=== PATIENT | female | born 1980 ===

== ENCOUNTER 2018-03-19 12:34 | Emergency (ER) | payer OTHER ==
[~2018-03-19] VITALS: Ht 165.1 cm; Wt 80.3 kg
[2018-03-19] MEDS ORDERED: OMEPRAZOLE (12:55)
[2018-03-19 13:07] LABS: BILIRUBIN,URINE NEGATIVE (NEGATIVE); CLARITY,URINE CLEAR; COLOR,URINE YELLOW; GLUCOSE, URINE (UA) NEGATIVE (NEGATIVE); KETONES,URINE NEGATIVE (NEGATIVE); LEUKOCYTE ESTERASE ,URINE NEGATIVE (NEGATIVE); NITRITE,URINE NEGATIVE (NEGATIVE); PH,URINE 5 (5-9); PROTEIN,URINE NEGATIVE (NEGATIVE); UROBILINOGEN,URINE NORMAL (NORMAL)
[2018-03-19 13:27] LABS: RBC,URINE 0-2 /HPF; SQUAMOUS EPITHELIAL CELL,UR 0-2 /HPF; WBC,URINE RARE /HPF
[2018-03-19 14:13] LABS: BASOPHILS # (AUTO) 0.1 10^3/uL (0.0-0.1); BASOPHILS % (AUTO) 1 % (0-10); EOSINOPHILS # (AUTO) 0.3 10^3/uL (0.0-0.3); EOSINOPHILS % (AUTO) 4 % (0-10); HEMATOCRIT 37 % (35-52); HEMOGLOBIN 13.1 G/DL (11.5-16.0); LYMPHOCYTES # (AUTO) 2.7 X 10^3 (1.0-4.0); LYMPHOCYTES % (AUTO) 32 % (12-44); MEAN CORPUSCULAR HEMOGLOBIN 31 PG (25-34); MEAN CORPUSCULAR HGB CONC 35 G/DL (32-36); MEAN CORPUSCULAR VOLUME 86 FL (80-99); MEAN PLATELET VOLUME 9.5 FL (7.4-10.4); MONOCYTES # (AUTO) 0.7 X 10^3 (0.0-1.0); MONOCYTES % (AUTO) 9 % (0-12); NEUTROPHILS # (AUTO) 4.6 X 10^3 (1.8-7.8); NEUTROPHILS % (AUTO) 55 % (42-75); PLATELET COUNT 364 10^3/uL (130-400); RED BLOOD COUNT 4.28 10^6/uL (4.35-5.85); RED CELL DISTRIBUTION WIDTH 12.5 % (10.0-14.5); WHITE BLOOD COUNT 8.5 10^3/uL (4.3-11.0)
[2018-03-19 14:32] LABS: ALANINE AMINOTRANSFERASE 25 U/L (0-55); ALBUMIN 4.6 GM/DL (3.2-4.5); ALKALINE PHOSPHATASE 64 U/L (40-136); BILIRUBIN,TOTAL 0.6 MG/DL (0.1-1.0); BUN/CREATININE RATIO 13; CALCIUM 9.7 MG/DL (8.5-10.1); CARBON DIOXIDE 25 MMOL/L (21-32); CHLORIDE 105 MMOL/L (98-107); CREATININE SERUM 0.67 MG/DL (0.60-1.30); GFR ESTIMATED > 60; GLUCOSE 93 MG/DL (70-105); LIPASE 38 U/L (8-78); MAGNESIUM 2.3 MG/DL (1.8-2.4); POTASSIUM 3.7 MMOL/L (3.6-5.0); SODIUM 142 MMOL/L (135-145); TOTAL PROTEIN 8.4 GM/DL (6.4-8.2)
[2018-03-19] MEDS ORDERED: HYOSCYAMINE 0.125 MG (LEVSIN) TAB SL ONE (14:45)
--- NOTE | 2018-03-19 14:47 | ED Abdominal Pain ---
General Chief Complaint: Abdominal/GI Problems Stated Complaint: ABD PAIN Nursing Triage Note: TO ROOM WITH C/O L UPUPER ABD PAIN FOR 1 MONTH WAS SEEN AT [facility] 2 WEEKS AGO AND STARTED ON OMEPRAZOLE . WAS TOLD TO FOLLOW UP IF NOT ANY BETTER REPORTS NOT ANY BETTER. Sepsis Screen: No Definite Risk Source of Information: Patient Exam Limitations: Language Barrier History of Present Illness Date Seen by Provider: Mar 19, 2018 Time Seen by Provider: 12:40 Initial Comments This 37-year-old woman presents to the emergency room with complaints of intermittent abdominal pain that first started on the left and has now migrated to the right. Pain has been intermittent for about one month and is sharp in nature. She does have some diarrhea. Pain and diarrhea seem to occur shortly after eating. She also reports some burning with urination. She reports her last menstrual period was 3 months ago and her cycles are normally irregular. She is not sexually active. She was recently started on a PPI which has helped a little. She is afebrile. Pain seems to be crampy or colicky in nature. Language line was used for the interview. Allergies and Home Medications Allergies Coded Allergies: No Known Drug Allergies (Unverified , 03/19/18) Home Medications Hyoscyamine Sulfate 0.125 Mg Tab.subl, 1-2 TAB SL Q4H PRN for CRAMPS Prescribed by: CASEY BAIRD on 03/19/18 [id number] Patient Home Medication List Home Medication List Reviewed: Yes Review of Systems Review of Systems Constitutional: no symptoms reported EENTM: No Symptoms Reported Respiratory: No Symptoms Reported Cardiovascular: No Symptoms Reported Gastrointestinal: See HPI Genitourinary: No Symptoms Reported Musculoskeletal: no symptoms reported Skin: no symptoms reported Psychiatric/Neurological: No Symptoms Reported Endocrine: No Symptoms Reported Hematologic/Lymphatic: No Symptoms Reported Past Ptpjwww-Esbzap-Abenbm Hx Patient Social History Alcohol Use: Denies Use Recreational Drug Use: No Smoking Status: Never a Smoker Recent Foreign Travel: No Contact w/Someone Who Travel: No Recent Infectious Disease Expo: No Past Medical History Surgeries: Yes Gallbladder Respiratory: No Cardiac: No Neurological: No : No Reproductive Disorders: Yes (irregular cycles) Female Reproductive Disorders: Menstrual Problems Genitourinary: No Gastrointestinal: No Musculoskeletal: No Endocrine: No HEENT: No Cancer: No Did You Recieve Any Treatments: No Psychosocial: No Integumentary: No Physical Exam Vital Signs Vital Signs - First Documented 03/19/18 12:42 Temp 99.0 Pulse 80 Resp 18 B/P (MAP) 120/82 (95) Pulse Ox 98 O2 Delivery Room Air Capillary Refill : Less Than 3 Seconds Height/Weight/BMI Height: 5'5.00" Weight: 177lbs. oz. 80.160956dj; BMI Method:Stated General Appearance: WD/WN, no apparent distress HEENT: PERRL/EOMI, normal ENT inspection, pharynx normal Neck: normal inspection Respiratory: lungs clear, normal breath sounds, no respiratory distress, no accessory muscle use Cardiovascular: regular rate, rhythm, no edema, no murmur Gastrointestinal: normal bowel sounds, soft, tenderness (diffuse, mild, no focal areas of tenderness) Extremities: normal inspection, no pedal edema Neurologic/Psychiatric: wood heel attacher II-XII nml as tested, no motor/sensory deficits, alert, normal mood/affect, oriented x 3 Skin: normal color, warm/dry Progress/Results/Core Measures Results/Orders Lab Results Laboratory Tests Test 03/19/18 12:43 03/19/18 12:53 Range/Units White Blood Count 8.5 4.3-11.0 10^3/uL Red Blood Count 4.28 L 4.35-5.85 10^6/uL Hemoglobin 13.1 11.5-16.0 G/DL Hematocrit 37 35-52 % Mean Corpuscular Volume 86 80-99 FL Mean Corpuscular Hemoglobin 31 25-34 PG Mean Corpuscular Hemoglobin Concent 35 32-36 G/DL Red Cell Distribution Width 12.5 10.0-14.5 % Platelet Count 364 130-400 10^3/uL Mean Platelet Volume 9.5 7.4-10.4 FL Neutrophils (%) (Auto) 55 42-75 % Lymphocytes (%) (Auto) 32 12-44 % Monocytes (%) (Auto) 9 0-12 % Eosinophils (%) (Auto) 4 0-10 % Basophils (%) (Auto) 1 0-10 % Neutrophils # (Auto) 4.6 1.8-7.8 X 10^3 Lymphocytes # (Auto) 2.7 1.0-4.0 X 10^3 Monocytes # (Auto) 0.7 0.0-1.0 X 10^3 Eosinophils # (Auto) 0.3 0.0-0.3 10^3/uL Basophils # (Auto) 0.1 0.0-0.1 10^3/uL Sodium Level 142 135-145 MMOL/L Potassium Level 3.7 3.6-5.0 MMOL/L Chloride Level 105 98-107 MMOL/L Carbon Dioxide Level 25 21-32 MMOL/L Anion Gap 12 5-14 MMOL/L Blood Urea Nitrogen 9 7-18 MG/DL Creatinine 0.67 0.60-1.30 MG/DL Estimat Glomerular Filtration Rate > 60 BUN/Creatinine Ratio 13 Glucose Level 93 70-105 MG/DL Calcium Level 9.7 8.5-10.1 MG/DL Corrected Calcium 8.5-10.1 MG/DL Magnesium Level 2.3 1.8-2.4 MG/DL Total Bilirubin 0.6 0.1-1.0 MG/DL Aspartate Amino Transf (AST/SGOT) 18 5-34 U/L Alanine Aminotransferase (ALT/SGPT) 25 0-55 U/L Alkaline Phosphatase 64 40-136 U/L C-Reactive Protein High Sensitivity 0.50 0.00-0.50 MG/DL Total Protein 8.4 H 6.4-8.2 GM/DL Albumin 4.6 H 3.2-4.5 GM/DL Lipase 38 8-78 U/L Serum Test, Qualitative NEGATIVE NEGATIVE Urine Color YELLOW Urine Clarity CLEAR Urine pH 5 5-9 Urine Specific Jamieson 1.020 1.016-1.022 Urine Protein NEGATIVE NEGATIVE Urine Glucose (UA) NEGATIVE NEGATIVE Urine Ketones NEGATIVE NEGATIVE Urine Nitrite NEGATIVE NEGATIVE Urine Bilirubin NEGATIVE NEGATIVE Urine Urobilinogen NORMAL NORMAL MG/DL Urine Leukocyte Esterase NEGATIVE NEGATIVE Urine RBC (Auto) 1+ H NEGATIVE Urine RBC 0-2 /HPF Urine WBC RARE /HPF Urine Squamous Epithelial Cells 0-2 /HPF Urine Crystals NONE /LPF Urine Bacteria NONE /HPF Urine Casts NONE /LPF Urine Mucus NEGATIVE /LPF Urine Culture Indicated NO My Orders Orders - CASEY ZARCO MD Ua Culture If Indicated (03/19/18 12:40) Cbc With Automated Diff (03/19/18 13:43) Comprehensive Metabolic Panel (03/19/18 13:43) Hs C Reactive Protein (03/19/18 13:43) Hcg,Qualitative Serum (03/19/18 13:43) Lipase (03/19/18 13:43) Magnesium (03/19/18 13:43) Saline Lock/Iv-Start (03/19/18 13:45) Abdomen, Flat & Upright/Decub (03/19/18 14:36) Hyoscyamine Sl Tablet (Levsin Sl Tablet) (03/19/18 14:45) Medications Given in ED Current Medications Medications Dose Ordered Sig/Nallely Route Start Time Stop Time Status Last Admin Dose Admin Hyoscyamine Sulfate 0.25 mg ONCE ONCE SL 03/19/18 14:45 03/19/18 14:46 DC 03/19/18 14:42 0.25 MG Vital Signs/I&O 03/19/18 03/19/18 12:42 16:07 Temp 99.0 Pulse 80 79 Resp 18 18 B/P (MAP) 120/82 (95) 109/67 (81) Pulse Ox 98 96 O2 Delivery Room Air Room Air Blood Pressure Mean: 95 Progress Progress Note #1: Time: 14:47 Progress Note Labs were unremarkable. We will obtain some x-rays and try Levsin. Progress Note #2: Progress Note Labs and x-ray were unremarkable. Pain improved with Levsin. Since diarrhea was ongoing for a month patient was given an order for stool studies. A prescription for Levsin was provided. Discharge instructions were reviewed with the language line environmental test technician and all questions were answered. Departure Impression Primary Impression: Colicky abdominal pain Additional Impression: Acute diarrhea Disposition: 01 HOME, SELF-CARE Condition: Improved Departure-Patient Inst. Decision time for Depature: 15:45 Referrals: [facility] (PCP/Family) Primary Care Physician Patient Instructions: Acute Abdomen (Belly Pain), Adult (DC), Diarrhea in Adolescents and Adults Add. Discharge Instructions: Collect a stool specimen and bring it back to the hospital with the order. Avoid foods that may irritate your bowels including fatty or greasy foods or milk products. You may use the Levsin (hyoscyamine) as prescribed for all cramping. Follow-up with your primary care provider several days after returning the stool specimen to review results. All discharge instructions reviewed with patient and/or family. Voiced understanding. Scripts Hyoscyamine Sulfate (Levsin-Sl) 0.125 Mg Tab.subl 1-2 TAB SL Q4H PRN for CRAMPS, #20 TAB Prov: CASEY ZARCO MD 03/19/18 Copy Copies To 1: KINA TOTH JOSHUA T MD Mar 19, 2018 14:47
--- NOTE | 2018-03-19 15:29 | Diagnostic Imaging Report ---
INDICATION: Abdominal pain and cramping. COMPARISON: None. EXAMINATION: KUB and upright views of the abdomen were obtained. FINDINGS: Nondistended bowel gas pattern. No significant constipation is seen. There is no free air. Osseous structures are normal. Cholecystectomy clips are present. IMPRESSION: Negative KUB and upright views of the abdomen. Dictated by: Dictated on workstation # [id number]
--- OUTSIDE RECORDS SUMMARY | 2018-03-19 15:40 | XMS REPORT ---
Author Author BROOKLYN BROWNE [facility] Address [address] [place] [address] Care Team Providers Care Base Remover Name Role Phone BROOKLYN BROWNE Unavailable PROBLEMS Type Condition ICD9-CM Code [id number] Code Onset Dates Condition Status SNOMED Code Problem Vitamin D deficiency E55.9 Active 85299795 Problem Lumbago with sciatica, left side M54.42 Active 454702387 Problem Other chronic pain G89.29 Active 29539601 Problem Other obesity due to excess calories E66.09 Active 645603493 Problem Lumbago with sciatica, right side M54.41 Active 248986239 Problem Dysmenorrhea N94.6 Active 066327959 Problem Body mass index (BMI) of 34.0-34.9 in adult Z68.34 Active 928405704 Problem Obesity (BMI 30.0-34.9) E66.9 Active 865568809289110 Problem History of gestational diabetes Z86.32 Active 128404404 ALLERGIES No Known Allergies ENCOUNTERS Encounter Location Date Diagnosis [facility] [address] [place] [phone] Nov, Seasonal allergic rhinitis, unspecified trigger J30.2 [place] [id number] [place] [address] Aug, Screening for STDs (sexually transmitted diseases) Z11.3 [place] [address] [place] [id number] [place] [address] 26 Jul, 2017 Encounter for well woman exam with routine gynecological exam Z01.419 ; Screening for STDs (sexually transmitted diseases) Z11.3 ; Vitamin deficiency E56.9 and Dietary surveillance and counseling Z71.3 [place] [address] [place] [id number] [place] [address] 19 Jul, 2017 Dysmenorrhea N94.6 [place] [address] [place] [id number] [place] [address] 15 Jul, 2017 Lumbago with sciatica, right side M54.41 ; Lumbago with sciatica, left side M54.42 ; Dysmenorrhea N94.6 ; History of gestational diabetes Z86.32 and Obesity (BMI 30.0-34.9) E66.9 [facility] [place] [address] [place] [id number] [place] [phone] 16 Jun, 2017 Fever R50.9 and Influenza J11.[address] [address] 09 Jun, 2017 Lumbago with sciatica, right side M54.41 ; Other chronic pain G89.29 ; History of gestational diabetes Z86.32 ; Dysmenorrhea N94.6 ; Other obesity due to excess calories E66.09 and Body mass index (BMI) of 34.0- 34.9 in adult Z68.34 [place] [id number] [place] [phone] Apr, Acute bilateral low back pain without sciatica M54.5 [place] [address] [place] [id number] [place] [phone] Mar, Lumbago with sciatica, left side M54.42 and Other chronic pain G89.29 IMMUNIZATIONS Vaccine Route Administration Date Status DEXAMETHASONE 4MG/ML (PER 1 MG) IM Intramuscular November 06, 2017 Administered DEPO MEDROL 40 MG/ML IM Intramuscular November 06, 2017 Administered SOCIAL HISTORY Never Assessed REASON FOR VISIT Ear pain/cough/bodyaches x15 days JStrasserRN PLAN OF CARE Activity Details Follow Up prn Reason: VITAL SIGNS Height 60 in 2017-11-06 Weight 178.4 lbs 2017-11-06 Temperature 98.6 degrees Fahrenheit 2017-11-06 Heart Rate 76 bpm 2017-11-06 Respiratory Rate 20 2017-11-06 BMI 34.84 kg/m2 2017-11-06 Blood pressure systolic 122 mmHg 2017-11-06 Blood pressure diastolic 78 mmHg 2017-11-06 MEDICATIONS Medication Instructions Dosage Frequency Start Date End Date Duration Status Zyrtec Allergy 10 MG Orally Once a day 1 tablet 24h Nov, Dec, 30 day(s) Active Ibuprofen 200 MG Orally Three times a day 1 tablet with food or milk as needed 8h Active Vitamin D3 5000 UNIT Orally Once a day 1 capsule 24h Jul, Dec, 30 day(s) Not-Taking tylenol 1 tab Not-Taking Hot Packs - Not-Taking Flonase 50 MCG/ACT Nasally Once a day 1 spray in each nostril 24h Nov, 30 day(s) Active RESULTS No Results PROCEDURES Procedure Date Ordered Result Body Site DEPO MEDROL 40 MG/ML November 06, 2017 DEXAMETHASONE 4MG/ML (PER 1 MG) November 06, 2017 THER/PROPH/DIAG INJ, SC/IM November 06, 2017 INSTRUCTIONS MEDICATIONS ADMINISTERED No Known Medications MEDICAL (GENERAL) HISTORY Type Description Date Medical History gestational diabetes Surgical History cholecystectomy 2002
--- OUTSIDE RECORDS SUMMARY | 2018-03-19 15:40 | XMS REPORT ---
Author Author KALI LLANES Organization [facility] Address [address] [place] [address] Care Team Providers Care Business Objects Analyst Name Role Phone MARIO ALBERTO KALI Unavailable PROBLEMS Type Condition ICD9-CM Code COE89-HR Code Onset Dates Condition Status SNOMED Code Problem Vitamin D deficiency E55.9 Active 15639226 Problem Lumbago with sciatica, left side M54.42 Active 351583032 Problem Other chronic pain G89.29 Active 17960051 Problem Other obesity due to excess calories E66.09 Active 111834079 Problem Lumbago with sciatica, right side M54.41 Active 585360987 Problem Dysmenorrhea N94.6 Active 233033747 Problem Body mass index (BMI) of 34.0-34.9 in adult Z68.34 Active 499361713 Problem Obesity (BMI 30.0-34.9) E66.9 Active 411367703999471 Problem History of gestational diabetes Z86.32 Active 763874670 ALLERGIES No Known Allergies ENCOUNTERS Encounter Location Date Diagnosis [facility] [address] [place] [phone] Nov, Seasonal allergic rhinitis, unspecified trigger J30.2 [facility] [address] [place] [address] Aug, Screening for STDs (sexually transmitted diseases) Z11.3 [facility] [address] [place] [id number] [place] [phone] Jul, Encounter for well woman exam with routine gynecological exam Z01.419 ; Screening for STDs (sexually transmitted diseases) Z11.3 ; Vitamin deficiency E56.9 and Dietary surveillance and counseling Z71.3 [facility] [address] [place] [id number] [place] [address] 19 Jul, 2017 Dysmenorrhea N94.6 [place] [address] [place] [id number] [place] [address] 15 Jul, 2017 Lumbago with sciatica, right side M54.41 ; Lumbago with sciatica, left side M54.42 ; Dysmenorrhea N94.6 ; History of gestational diabetes Z86.32 and Obesity (BMI 30.0-34.9) E66.9 [facility] [place] [address] [phone] 16 Jun, 2017 Fever R50.9 and Influenza J11.[address] [address] 09 Jun, 2017 Lumbago with sciatica, right side M54.41 ; Other chronic pain G89.29 ; History of gestational diabetes Z86.32 ; Dysmenorrhea N94.6 ; Other obesity due to excess calories E66.09 and Body mass index (BMI) of 34.0- 34.9 in adult Z68.34 [place] [id number] [place] [address] Apr, Acute bilateral low back pain without sciatica M54.[address] [address] 20 Mar, 2017 Lumbago with sciatica, left side M54.42 and Other chronic pain G89.29 IMMUNIZATIONS No Known Immunizations SOCIAL HISTORY Never Assessed REASON FOR VISIT Establish Care / back pain fu -- ernestine flower PLAN OF CARE Activity Details Follow Up 4 Weeks Reason:follow up back pain VITAL SIGNS Height 60 in 2017-06-15 Weight 178.6 lbs 2017-06-15 Temperature 98.5 degrees Fahrenheit 2017-06-15 Heart Rate 68 bpm 2017-06-15 Respiratory Rate 20 2017-06-15 BMI 34.88 kg/m2 2017-06-15 Blood pressure systolic 106 mmHg 2017-06-15 Blood pressure diastolic 70 mmHg 2017-06-15 MEDICATIONS Medication Instructions Dosage Frequency Start Date End Date Duration Status Tizanidine HCl 4 MG Orally Three times a day 1 tablet as needed 8h Jun, 8 Jul, 2017 30 days Active Ibuprofen 800 MG Orally Three times a day 1 tablet with food or milk as needed 8h Jun, Sep, 90 days Active tylenol 1 tab Active Hot Packs - Active Ibuprofen 800 MG Orally Three times a day 1 tablet with food or milk as needed 8h Active RESULTS No Results PROCEDURES No Known procedures INSTRUCTIONS MEDICATIONS ADMINISTERED No Known Medications MEDICAL (GENERAL) HISTORY Type Description Date Medical History gestational diabetes Surgical History cholecystectomy 2002
--- OUTSIDE RECORDS SUMMARY | 2018-03-19 15:40 | XMS REPORT ---
Author Author ISI RUEDA [facility] Address [address] [place] [address] Care Team Providers Care Speech Language Therapist Name Role Phone ISI RUEDA Unavailable PROBLEMS ALLERGIES No Known Allergies ENCOUNTERS IMMUNIZATIONS No Known Immunizations SOCIAL HISTORY No smoking Hx information available REASON FOR VISIT PLAN OF CARE VITAL SIGNS MEDICATIONS RESULTS PROCEDURES INSTRUCTIONS MEDICATIONS ADMINISTERED No Known Medications MEDICAL (GENERAL) HISTORY
--- OUTSIDE RECORDS SUMMARY | 2018-03-19 15:40 | XMS REPORT ---
Author Author KALI LLANES Organization [facility] Address [address] [place] [address] Care Team Providers Care Cable Respooler Name Role Phone MARIO ALBERTO KALI Unavailable PROBLEMS Type Condition ICD9-CM Code XFP81-RL Code Onset Dates Condition Status SNOMED Code Problem Vitamin D deficiency E55.9 Active 63640191 Problem Lumbago with sciatica, left side M54.42 Active 326666283 Problem Other chronic pain G89.29 Active 15580779 Problem Other obesity due to excess calories E66.09 Active 092168465 Problem Lumbago with sciatica, right side M54.41 Active 783795719 Problem Dysmenorrhea N94.6 Active 020045598 Problem Body mass index (BMI) of 34.0-34.9 in adult Z68.34 Active 273230176 Problem Obesity (BMI 30.0-34.9) E66.9 Active 240896866661054 Problem History of gestational diabetes Z86.32 Active 670336492 ALLERGIES No Known Allergies ENCOUNTERS Encounter Location Date Diagnosis [facility] [address] [place] [phone] Nov, Seasonal allergic rhinitis, unspecified trigger J30.2 [facility] [address] [place] [address] Aug, Screening for STDs (sexually transmitted diseases) Z11.3 [facility] [address] [place] [id number] [place] [address] Jul, Encounter for well woman exam with routine gynecological exam Z01.419 ; Screening for STDs (sexually transmitted diseases) Z11.3 ; Vitamin deficiency E56.9 and Dietary surveillance and counseling Z71.3 [facility] [address] [place] [id number] [place] [address] 19 Jul, 2017 Dysmenorrhea N94.6 [place] [address] [place] [address] 15 Jul, 2017 Lumbago with sciatica, right side M54.41 ; Lumbago with sciatica, left side M54.42 ; Dysmenorrhea N94.6 ; History of gestational diabetes Z86.32 and Obesity (BMI 30.0-34.9) E66.9 [facility] [place] [address] [phone] 16 Jun, 2017 Fever R50.9 and Influenza J11.[address] [address] 09 Jun, 2017 Lumbago with sciatica, right side M54.41 ; Other chronic pain G89.29 ; History of gestational diabetes Z86.32 ; Dysmenorrhea N94.6 ; Other obesity due to excess calories E66.09 and Body mass index (BMI) of 34.0- 34.9 in adult Z68.34 [place] [address] [place] [id number] [place] [address] Apr, Acute bilateral low back pain without sciatica M54.5 [place] [address] [place] [id number] [place] [address] 20 Mar, 2017 Lumbago with sciatica, left side M54.42 and Other chronic pain G89.29 IMMUNIZATIONS No Known Immunizations SOCIAL HISTORY Never Assessed REASON FOR VISIT back pain f/u: states no change, pain worsens with menses scarlett sigala PLAN OF CARE Activity Details Follow Up prn, 3 Months Reason:chm VITAL SIGNS Height 60 in 2017-07-22 Weight 176.4 lbs 2017-07-22 Temperature 98.6 degrees Fahrenheit 2017-07-22 Heart Rate 78 bpm 2017-07-22 Respiratory Rate 20 2017-07-22 BMI 34.45 kg/m2 2017-07-22 Blood pressure systolic 104 mmHg 2017-07-22 Blood pressure diastolic 60 mmHg 2017-07-22 MEDICATIONS Medication Instructions Dosage Frequency Start Date End Date Duration Status Ibuprofen 800 MG Orally Three times a day 1 tablet with food or milk as needed 8h Jun, Sep, 90 days Active Hot Packs - Active tylenol 1 tab Active PredniSONE 10 mg Orally Once a day 4 tabs x 4 days, 3 tabs x 4 days, 2 tabs x 4 days, then 1 tab x 4 days 24h Jul, Aug, 16 days Active RESULTS No Results PROCEDURES No Known procedures INSTRUCTIONS MEDICATIONS ADMINISTERED No Known Medications MEDICAL (GENERAL) HISTORY Type Description Date Medical History gestational diabetes Surgical History cholecystectomy 2002
--- OUTSIDE RECORDS SUMMARY | 2018-03-19 15:40 | XMS REPORT ---
Author Author SYBIL BLANDON Organization [facility] Address [address] [place] [address] Care Team Providers Care Land Economist Name Role Phone SYBIL BLANDON Unavailable PROBLEMS Type Condition ICD9-CM Code [id number] Code Onset Dates Condition Status SNOMED Code Problem Vitamin D deficiency E55.9 Active 98932708 Problem Lumbago with sciatica, left side M54.42 Active 424081922 Problem Other chronic pain G89.29 Active 22962559 Problem Other obesity due to excess calories E66.09 Active 811564298 Problem Lumbago with sciatica, right side M54.41 Active 905783894 Problem Dysmenorrhea N94.6 Active 684247244 Problem Body mass index (BMI) of 34.0-34.9 in adult Z68.34 Active 474579546 Problem Obesity (BMI 30.0-34.9) E66.9 Active 750136954914059 Problem History of gestational diabetes Z86.32 Active 495609386 ALLERGIES No Known Allergies ENCOUNTERS Encounter Location Date Diagnosis [facility] [address] [place] [phone] Nov, Seasonal allergic rhinitis, unspecified trigger J30.2 [facility] [address] [place] [address] 64[address] Aug, Screening for STDs (sexually transmitted diseases) Z11.3 [facility] [address] [place] [id number] [place] [address]778- 1281 Jul, Encounter for well woman exam with routine gynecological exam Z01.419 ; Screening for STDs (sexually transmitted diseases) Z11.3 ; Vitamin deficiency E56.9 and Dietary surveillance and counseling Z71.3 [facility] [address] [place] [id number] [place] [address] 96176- 6465 19 Jul, 2017 Dysmenorrhea N94.6 [place] [address] [place] [address]44- 6868 15 Jul, 2017 Lumbago with sciatica, right side M54.41 ; Lumbago with sciatica, left side M54.42 ; Dysmenorrhea N94.6 ; History of gestational diabetes Z86.32 and Obesity (BMI 30.0-34.9) E66.9 [facility] [place] [address] [place] [id number] [place] [address]20 [address]6792 Jun, Fever R50.9 and Influenza J11.1 [place] [id number] [place] [address] 41447- 8906 09 Jun, 2017 Lumbago with sciatica, right side M54.41 ; Other chronic pain G89.29 ; History of gestational diabetes Z86.32 ; Dysmenorrhea N94.6 ; Other obesity due to excess calories E66.09 and Body mass index (BMI) of 34.0- 34.9 in adult Z68.34 [facility] [place] [id number] [place] [address]80 [address]6015 Apr, Acute bilateral low back pain without sciatica M54.5 [place] [id number] [place] [address] 79456- 0843 20 Mar, 2017 Lumbago with sciatica, left side M54.42 and Other chronic pain G89.29 IMMUNIZATIONS No Known Immunizations SOCIAL HISTORY Never Assessed REASON FOR VISIT fever/body aches Pt c/o fever, body aches and headache since yesterday, does state she has diarrhea and vomiting as well. ASHWIN Ferguson PLAN OF CARE Activity Details Follow Up prn Reason: VITAL SIGNS Height 60 in 2017-06-22 Weight 176.6 lbs 2017-06-22 Temperature 100.5 degrees Fahrenheit 2017-06-22 Heart Rate 70 bpm 2017-06-22 Respiratory Rate 20 2017-06-22 BMI 34.49 kg/m2 2017-06-22 Blood pressure systolic 110 mmHg 2017-06-22 Blood pressure diastolic 68 mmHg 2017-06-22 MEDICATIONS Medication Instructions Dosage Frequency Start Date End Date Duration Status tylenol 1 tab Not-Taking Ibuprofen 800 MG Orally Three times a day 1 tablet with food or milk as needed 8h Jun, Sep, 90 days Not-Taking Ibuprofen 800 MG Orally Three times a day 1 tablet with food or milk as needed 8h Not-Taking Tizanidine HCl 4 MG Orally Three times a day 1 tablet as needed 8h Jun, Jul, 30 days Not-Taking Hot Packs - Not-Taking RESULTS Name Result Date Reference Range INFLUENZA A & B (IN HOUSE) 2017-06-22 INFLUENZA A positive INFLUENZA B negative Control + Lot # [id number] Exp date [id number] PROCEDURES Procedure Date Ordered Result Body Site INFLUENZA ASSAY W/OPTIC Jun 22, 2017 INSTRUCTIONS MEDICATIONS ADMINISTERED No Known Medications MEDICAL (GENERAL) HISTORY Type Description Date Medical History gestational diabetes Surgical History cholecystectomy 2002
--- OUTSIDE RECORDS SUMMARY | 2018-03-19 15:40 | XMS REPORT ---
Author Author KALI LLANES Organization [facility] Address [address] [place] [address] Care Team Providers Care Treasury Consultant Name Role Phone MARIO ALBERTO KALI Unavailable PROBLEMS Type Condition ICD9-CM Code IVU30-TV Code Onset Dates Condition Status SNOMED Code Problem Vitamin D deficiency E55.9 Active 31951396 Problem Lumbago with sciatica, left side M54.42 Active 374167500 Problem Other chronic pain G89.29 Active 19197857 Problem Other obesity due to excess calories E66.09 Active 297088032 Problem Lumbago with sciatica, right side M54.41 Active 028313731 Problem Dysmenorrhea N94.6 Active 096368712 Problem Body mass index (BMI) of 34.0-34.9 in adult Z68.34 Active 603863317 Problem Obesity (BMI 30.0-34.9) E66.9 Active 342348805191325 Problem History of gestational diabetes Z86.32 Active 977612846 ALLERGIES No Known Allergies ENCOUNTERS Encounter Location Date Diagnosis [facility] [id number] [place] [address] Nov, Seasonal allergic rhinitis, unspecified trigger J30.2 [facility] [address] [place] [address] 48643- 2025 Aug, Screening for STDs (sexually transmitted diseases) Z11.3 [facility] [address] [place] [id number] [place] [address] 88365- 6910 Jul, Encounter for well woman exam with routine gynecological exam Z01.419 ; Screening for STDs (sexually transmitted diseases) Z11.3 ; Vitamin deficiency E56.9 and Dietary surveillance and counseling Z71.3 [facility] [address] [place] [id number] [place] [address] 49734- 5708 19 Jul, 2017 Dysmenorrhea N94.6 [place] [address] [place] [id number] [place] [address] 60980- 9053 15 Jul, 2017 Lumbago with sciatica, right side M54.41 ; Lumbago with sciatica, left side M54.42 ; Dysmenorrhea N94.6 ; History of gestational diabetes Z86.32 and Obesity (BMI 30.0-34.9) E66.9 [facility] IN [place] [address] [address] 16 Jun, 2017 Fever R50.9 and Influenza J11.[address] [address] 09 Jun, 2017 Lumbago with sciatica, right side M54.41 ; Other chronic pain G89.29 ; History of gestational diabetes Z86.32 ; Dysmenorrhea N94.6 ; Other obesity due to excess calories E66.09 and Body mass index (BMI) of 34.0- 34.9 in adult Z68.34 [place] [id number] [place] [address]63 [address]2096 Apr, Acute bilateral low back pain without sciatica M54.[address] [address] 20 Mar, 2017 Lumbago with sciatica, left side M54.42 and Other chronic pain G89.29 IMMUNIZATIONS No Known Immunizations SOCIAL HISTORY Never Assessed REASON FOR VISIT Annual physical (female): denies concerns/questions scarlett sigala PLAN OF CARE Activity Details Follow Up 3 Months Reason:CHM/ VITAL SIGNS Height 60 in 2017-08-02 Weight 171.4 lbs 2017-08-02 Temperature 98.7 degrees Fahrenheit 2017-08-02 Heart Rate 84 bpm 2017-08-02 Respiratory Rate 20 2017-08-02 BMI 33.47 kg/m2 2017-08-02 Blood pressure systolic 122 mmHg 2017-08-02 Blood pressure diastolic 70 mmHg 2017-08-02 MEDICATIONS Medication Instructions Dosage Frequency Start Date End Date Duration Status PredniSONE 10 mg Orally Once a day 4 tabs x 4 days, 3 tabs x 4 days, 2 tabs x 4 days, then 1 tab x 4 days 24h 15 Jul, 2017 Aug, 16 days Active tylenol 1 tab Not-Taking Hot Packs - Active Ibuprofen 800 MG Orally Three times a day 1 tablet with food or milk as needed 8h Jun, Sep, 90 days Active Vitamin D3 5000 UNIT Orally Once a day 1 capsule 24h Jul, Dec, 30 day(s) Active RESULTS No Results PROCEDURES Procedure Date Ordered Result Body Site No Charge Aug 02, 2017 TRICHOMONAS ASSAY W/OPTIC Aug 02, 2017 CULTURE, BACTERIA, OTHER Aug 02, 2017 Bacterial Vaginosis In House Aug 02, 2017 SPECIMEN HANDLING Aug 02, 2017 INSTRUCTIONS MEDICATIONS ADMINISTERED No Known Medications MEDICAL (GENERAL) HISTORY Type Description Date Medical History gestational diabetes Surgical History cholecystectomy 2002
--- OUTSIDE RECORDS SUMMARY | 2018-03-19 15:40 | XMS REPORT ---
Author Author KALI LLANES Organization [facility] Address [address] [place] [address] Care Team Providers Care Winch Stripper Name Role Phone MARIO ALBERTO KALI Unavailable PROBLEMS Type Condition ICD9-CM Code OQG22-LO Code Onset Dates Condition Status SNOMED Code Problem Vitamin D deficiency E55.9 Active 63720637 Problem Lumbago with sciatica, left side M54.42 Active 782732644 Problem Other chronic pain G89.29 Active 06653521 Problem Other obesity due to excess calories E66.09 Active 975795860 Problem Lumbago with sciatica, right side M54.41 Active 291829910 Problem Dysmenorrhea N94.6 Active 835165574 Problem Body mass index (BMI) of 34.0-34.9 in adult Z68.34 Active 771141454 Problem Obesity (BMI 30.0-34.9) E66.9 Active 945593420821110 Problem History of gestational diabetes Z86.32 Active 011679050 ALLERGIES No Information ENCOUNTERS Encounter Location Date Diagnosis [facility] [address] [place] [address] 939[address] Nov, Seasonal allergic rhinitis, unspecified trigger J30.2 [facility] [address] [place] [address] 97574- 5267 Aug, Screening for STDs (sexually transmitted diseases) Z11.3 [facility] [address] [place] [id number] [place] [address] 54094- 8723 Jul, Encounter for well woman exam with routine gynecological exam Z01.419 ; Screening for STDs (sexually transmitted diseases) Z11.3 ; Vitamin deficiency E56.9 and Dietary surveillance and counseling Z71.3 [facility] [address] [place] [id number] [place] [address] 57017- 8173 19 Jul, 2017 Dysmenorrhea N94.6 [address] [place] [address] 98539- 2782 15 Jul, 2017 Lumbago with sciatica, right side M54.41 ; Lumbago with sciatica, left side M54.42 ; Dysmenorrhea N94.6 ; History of gestational diabetes Z86.32 and Obesity (BMI 30.0-34.9) E66.9 [facility] IN [address] [address] 16 Jun, 2017 Fever R50.9 and Influenza J11.[address] [address]- [address]60 09 Jun, 2017 Lumbago with sciatica, right side M54.41 ; Other chronic pain G89.29 ; History of gestational diabetes Z86.32 ; Dysmenorrhea N94.6 ; Other obesity due to excess calories E66.09 and Body mass index (BMI) of 34.0- 34.9 in adult Z68.34 [place] [id number] [place] [address] 54559 -3792 Apr, Acute bilateral low back pain without sciatica M54.5 [place] [id number] [place] [address] 54412- 2517 20 Mar, 2017 Lumbago with sciatica, left side M54.42 and Other chronic pain G89.29 IMMUNIZATIONS No Known Immunizations SOCIAL HISTORY Never Assessed REASON FOR VISIT lab results PLAN OF CARE VITAL SIGNS MEDICATIONS No Known Medications RESULTS No Results PROCEDURES No Known procedures INSTRUCTIONS MEDICATIONS ADMINISTERED No Known Medications MEDICAL (GENERAL) HISTORY Type Description Date Medical History gestational diabetes Surgical History cholecystectomy 2002
--- OUTSIDE RECORDS SUMMARY | 2018-03-19 15:41 | XMS REPORT ---
Author Author GEORGES SHEPHERD Organization [facility] Address [address] [place] [address] Care Team Providers Care Sql Manager Name Role Phone GEORGES SHEPHERD Unavailable PROBLEMS Type Condition ICD9-CM Code SQT48-IL Code Onset Dates Condition Status SNOMED Code Problem Vitamin D deficiency E55.9 Active 00665056 Problem Lumbago with sciatica, left side M54.42 Active 155691562 Problem Other chronic pain G89.29 Active 22526276 Problem Other obesity due to excess calories E66.09 Active 011497173 Problem Lumbago with sciatica, right side M54.41 Active 142225317 Problem Dysmenorrhea N94.6 Active 762990521 Problem Body mass index (BMI) of 34.0-34.9 in adult Z68.34 Active 908361439 Problem Obesity (BMI 30.0-34.9) E66.9 Active 961688840416865 Problem History of gestational diabetes Z86.32 Active 024515323 ALLERGIES No Known Allergies ENCOUNTERS Encounter Location Date Diagnosis [place] [address] [place] [id number] [place] [address] 68988- 3291 Aug, Screening for STDs (sexually transmitted diseases) Z11.3 [place] [address] [place] [id number] [place] [address] 79829- 7365 26 Jul, 2017 Encounter for well woman exam with routine gynecological exam Z01.419 ; Screening for STDs (sexually transmitted diseases) Z11.3 ; Vitamin deficiency E56.9 and Dietary surveillance and counseling Z71.3 [place] [address] [place] [id number] [place] [address] 65553- 3570 19 Jul, 2017 Dysmenorrhea N94.6 [place] [address] [place] [id number] [place] [address] 11528- 0479 15 Jul, 2017 Lumbago with sciatica, right side M54.41 ; Lumbago with sciatica, left side M54.42 ; Dysmenorrhea N94.6 ; History of gestational diabetes Z86.32 and Obesity (BMI 30.0-34.9) E66.9 [facility] [address] [address] 16 Jun, 2017 Fever R50.9 and Influenza J11.1 [place] [id number] [place] [address] 32354- 4871 09 Jun, 2017 Lumbago with sciatica, right side M54.41 ; Other chronic pain G89.29 ; History of gestational diabetes Z86.32 ; Dysmenorrhea N94.6 ; Other obesity due to excess calories E66.09 and Body mass index (BMI) of 34.0- 34.9 in adult Z68.34 [facility] IN [address] [place] [address] 15176 -5196 Apr, Acute bilateral low back pain without sciatica M54.5 [place] [address] [place] [address] 01790- 6035 20 Mar, 2017 Lumbago with sciatica, left side M54.42 and Other chronic pain G89.29 IMMUNIZATIONS No Known Immunizations SOCIAL HISTORY Never Assessed REASON FOR VISIT back pain- did not take prednisone as prescribed [facility] PLAN OF CARE VITAL SIGNS Height 60 in 2017-05-05 Weight 174.6 lbs 2017-05-05 Temperature 97.5 degrees Fahrenheit 2017-05-05 Heart Rate 72 bpm 2017-05-05 Respiratory Rate 22 2017-05-05 BMI 34.10 kg/m2 2017-05-05 Blood pressure systolic 90 mmHg 2017-05-05 Blood pressure diastolic 60 mmHg 2017-05-05 MEDICATIONS Medication Instructions Dosage Frequency Start Date End Date Duration Status tylenol 1 tab Active Ibuprofen 800 MG Orally Three times a day 1 tablet with food or milk as needed 8h Active PredniSONE 20 mg Orally Once a day 2 tablets 24h Apr, May, 05 days Active Hot Packs - Active RESULTS No Results PROCEDURES No Known procedures INSTRUCTIONS MEDICATIONS ADMINISTERED No Known Medications MEDICAL (GENERAL) HISTORY Type Description Date Medical History gestational diabetes Surgical History cholecystectomy 2002
--- OUTSIDE RECORDS SUMMARY | 2018-03-19 15:41 | XMS REPORT ---
Author Author KALI LLANES Organization [facility] Address [address] [place] [address] Care Team Providers Care Box Storage Worker Name Role Phone MARIO ALBERTO KALI Unavailable PROBLEMS Type Condition ICD9-CM Code NLF49-EU Code Onset Dates Condition Status SNOMED Code Problem Vitamin D deficiency E55.9 Active 00760924 Problem Lumbago with sciatica, left side M54.42 Active 051754846 Problem Other chronic pain G89.29 Active 27364178 Problem Other obesity due to excess calories E66.09 Active 907293817 Problem Lumbago with sciatica, right side M54.41 Active 128076221 Problem Dysmenorrhea N94.6 Active 755846228 Problem Body mass index (BMI) of 34.0-34.9 in adult Z68.34 Active 212723350 Problem Obesity (BMI 30.0-34.9) E66.9 Active 332505888030663 Problem History of gestational diabetes Z86.32 Active 157466636 ALLERGIES No Information ENCOUNTERS Encounter Location Date Diagnosis [facility] [address] [place] [address] Nov, Seasonal allergic rhinitis, unspecified trigger J30.2 [facility] [address] [place] [address] 16503- 2419 Aug, Screening for STDs (sexually transmitted diseases) Z11.3 [facility] [address] [place] [id number] [place] [address] 33299- 4320 Jul, Encounter for well woman exam with routine gynecological exam Z01.419 ; Screening for STDs (sexually transmitted diseases) Z11.3 ; Vitamin deficiency E56.9 and Dietary surveillance and counseling Z71.3 [facility] [address] [place] [id number] [place] [address] 90201- 7585 19 Jul, 2017 Dysmenorrhea N94.6 [place] [address] [place] [address] 94870- 8905 15 Jul, 2017 Lumbago with sciatica, right side M54.41 ; Lumbago with sciatica, left side M54.42 ; Dysmenorrhea N94.6 ; History of gestational diabetes Z86.32 and Obesity (BMI 30.0-34.9) E66.[address] [facility] IN [place] [address] [place] [id number] [place] [address] 54656 -[address]69 16 Jun, 2017 Fever R50.9 and Influenza J11.[address] [address] 09 Jun, 2017 Lumbago with sciatica, right side M54.41 ; Other chronic pain G89.29 ; History of gestational diabetes Z86.32 ; Dysmenorrhea N94.6 ; Other obesity due to excess calories E66.09 and Body mass index (BMI) of 34.0- 34.9 in adult Z68.34 [facility] IN [place] [id number] [place] [address] 50649 -[address]351 29 Apr, 2017 Acute bilateral low back pain without sciatica M54.5 [place] [id number] [place] [address] 72846- 6293 20 Mar, 2017 Lumbago with sciatica, left side M54.42 and Other chronic pain G89.29 IMMUNIZATIONS No Known Immunizations SOCIAL HISTORY Never Assessed REASON FOR VISIT Lab (walk-in) PLAN OF CARE VITAL SIGNS MEDICATIONS No Known Medications RESULTS No Results PROCEDURES Procedure Date Ordered Result Body Site COMPREHEN METABOLIC PANEL Jul 26, 2017 COMPLETE CBC W/AUTO DIFF WBC Jul 26, 2017 VENIPUNCT, ROUTINE* Jul 26, 2017 LIPID PANEL Jul 26, 2017 Hemoglobin Test Send Out 0 dollar Jul 26, 2017 ASSAY THYROID STIM HORMONE Jul 26, 2017 ASSAY OF VITAMIN D Jul 26, 2017 INSTRUCTIONS MEDICATIONS ADMINISTERED No Known Medications MEDICAL (GENERAL) HISTORY Type Description Date Medical History gestational diabetes Surgical History cholecystectomy 2002
[2018-03-19] MEDS ORDERED: HYOS0.1283 SL (15:54)
[2018-03-19 16:07] VITALS: BP 109/67
== END 2018-03-19 16:07 | disposition home or self-care (01) ==
LOC: ER 12:38
DX: R10.83 Colic (principal); R10.12 Left upper quadrant pain; R19.7 Diarrhea, unspecified; Z87.448 Personal history of other diseases of urinary system; Z90.49 Acquired absence of other specified parts of digestive tract
CPT/HCPCS: 36415; 74019; 80053; 81000; 83690; 83735; 84703; 85025; 86141

== ENCOUNTER 2018-03-21 12:29 | Outpatient (RCR) | payer OTHER ==
[~2018-03-21 12:29] MED LIST: HYOS0.1283 SL; OMEPRAZOLE
== END 2018-06-19 | disposition home or self-care (01) ==
LOC: LAB 12:29
PROVIDERS: ATTEND Family Medicine
DX: R19.7 Diarrhea, unspecified (principal); R10.84 Generalized abdominal pain
CPT/HCPCS: 87045; 87046; 87328; 87329; 89055